=== PATIENT | female | born 1940 | race Caucasian/White ===

== ENCOUNTER → 2018-07-30 15:14 | Outpatient (CLI) | payer MEDICARE, MEDICAID ==
[2018-04-03 16:10] VITALS: BMI 20.6
[~2018-07-30 15:14] MED LIST: ADVAIR 250/501 DISK INH; CARAFATE1 G/10 ML PO; CORDARONE200 MG PO; DALIRESP500 MCG PO; DIAMOX250 MG PO; IPRAT-ALBUT 0.5-3 ML UPD; K-DUR20 MEQ PO; LASIX40 MG PO; LEVAQUIN750 MG PO; MOEXIPRIL HCTZ PO; MUCINEX D1 TAB.SR . PO; MUCINEX DM ER1 EAC1 PO; MUCINEX600 MG PO; PROTONIX40 MG PO; SINGULAIR10 MG PO; STERAPRED 5MG 125 MG PO; TESSALON PERLE100 MG PO; XARELTO20 MG PO
== END | disposition home or self-care (01) ==
LOC: D.MRI 15:14
DX: S32.030D Wedge compression fracture of third lumbar vertebra, subsequent encounter for fracture with routine healing (principal); X58.XXXA Exposure to other specified factors, initial encounter